=== PATIENT | male | born 1995 | race Two or more races ===

== ENCOUNTER → 2017-09-29 | Outpatient (CLI) | payer OTHER ==
[~2017-09-29] MED LIST: LEVSIN/SL0.125 MG SL; PREVACID30 MG PO
== END | disposition home or self-care (01) ==
LOC: LAB 16:38
DX: N30.00 Acute cystitis without hematuria (principal); N34.1 Nonspecific urethritis

== ENCOUNTER → 2020-06-19 09:33 | Outpatient (CLI) | payer OTHER | END | disposition home or self-care (01) | LOC: LAB 09:33 | PROVIDERS: ATTEND Urology | DX: N30.00 Acute cystitis without hematuria (principal) ==

== ENCOUNTER 2020-06-19 09:43 | Outpatient (CLI) | payer OTHER | END 2020-06-19 09:59 | disposition home or self-care (01) | LOC: RAD 09:43 | PROVIDERS: ATTEND Urology | DX: N20.1 Calculus of ureter (principal); N30.00 Acute cystitis without hematuria; R31.1 Benign essential microscopic hematuria; M17.0 Bilateral primary osteoarthritis of knee ==

== ENCOUNTER 2021-07-28 12:30 | Outpatient (CLI) | payer OTHER | END 2021-07-28 12:48 | disposition home or self-care (01) | LOC: LAB 12:30 | PROVIDERS: ATTEND Urology | DX: N30.00 Acute cystitis without hematuria (principal) ==

== ENCOUNTER 2021-07-30 13:04 | Outpatient (CLI) | payer OTHER | END 2021-07-30 13:05 | disposition home or self-care (01) | LOC: LAB 13:04 | DX: Z11.3 Encounter for screening for infections with a predominantly sexual mode of transmission (principal) ==